=== PATIENT | male | born 1990 | race African-American/Black ===

== ENCOUNTER 2018-06-20 09:26 | Emergency (ER) | payer BC, OTHER ==
[~2018-06-20] VITALS: Ht 172.7 cm; Wt 63.5 kg
[~2018-06-20 09:26] MED LIST: NAPROSYN500 MG PO; NORFLEX100 MG PO
[2018-06-20 09:50] LABS: URINE BILIRUBIN NEGATIVE (Negative); URINE BLOOD NEGATIVE (Negative); URINE CLARITY CLEAR; URINE COLOR YELLOW; URINE GLUCOSE-RANDOM* NEGATIVE (Negative); URINE KETONES NEGATIVE (Negative); URINE LEUKOCYTES-REFLEX TRACE (Negative); URINE NITRITE-REFLEX NEGATIVE (Negative); URINE PROTEIN (DIPSTICK) NEGATIVE (Negative); URINE UROBILINOGEN 0.2 E.U./dl (0.2-1.0)
[2018-06-20 10:47] VITALS: BP 121/82
== END 2018-06-20 10:47 | disposition home or self-care (01) ==
LOC: ER 09:26
PROVIDERS: Emergency Medicine
DX: N34.2 Other urethritis (principal)

== ENCOUNTER → 2020-10-22 | Outpatient (CLI) | payer BC, OTHER | LOC: RAD 10:08 | PROVIDERS: ATTEND Family Medicine | DX: M79.672 Pain in left foot (principal) ==